=== PATIENT | male | born 1980 | race African-American/Black ===

== ENCOUNTER 2023-12-10 08:52 | Emergency (ER) | payer SELFPAY | END 2023-12-10 09:19 | disposition home or self-care (01) | LOC: CSHERS 08:52 | DX: S62.201D Unspecified fracture of first metacarpal bone, right hand, subsequent encounter for fracture with routine healing (principal); I10 Essential (primary) hypertension; F17.210 Nicotine dependence, cigarettes, uncomplicated; X58.XXXD Exposure to other specified factors, subsequent encounter | CPT/HCPCS: 29125; 99282 ==